=== PATIENT | male | born 1965 | race African-American/Black ===

== ENCOUNTER 2019-01-06 19:30 | Outpatient (CLI) | payer BC | END 2019-01-06 19:31 | disposition home or self-care (01) | LOC: SLEEPLAB 19:30 | PROVIDERS: ATTEND Family Medicine | DX: G47.33 Obstructive sleep apnea (adult) (pediatric) (principal); R53.83 Other fatigue; R06.83 Snoring; F41.9 Anxiety disorder, unspecified; I10 Essential (primary) hypertension | CPT/HCPCS: 95811 ==

== ENCOUNTER 2023-01-07 10:50 | Outpatient (CLI) | payer BC | END 2023-01-07 10:51 | disposition home or self-care (01) | LOC: RAD 10:50 | PROVIDERS: ATTEND Family Medicine | DX: M54.9 Dorsalgia, unspecified (principal); M47.816 Spondylosis without myelopathy or radiculopathy, lumbar region | CPT/HCPCS: 72100 ==

== ENCOUNTER 2023-06-20 12:37 | Outpatient (CLI) | payer BC | END 2023-06-20 12:38 | disposition home or self-care (01) | LOC: CT 12:37 | PROVIDERS: ATTEND Allergy & Immunology | DX: J30.0 Vasomotor rhinitis (principal); J34.89 Other specified disorders of nose and nasal sinuses ==

== ENCOUNTER 2023-08-13 14:08 | Outpatient (CLI) | payer BC | END 2023-08-13 14:09 | disposition home or self-care (01) | LOC: BICRAD 14:08 | PROVIDERS: ATTEND Family Medicine | DX: M25.561 Pain in right knee (principal) ==